=== PATIENT | female | born 1995 | race American Indian/Alaskan Native ===

== ENCOUNTER 2018-05-14 01:34 | Emergency (ER) | payer BC ==
[2018-05-14 01:58] VITALS: RESP 16; TEMP 98.5
[2018-05-14 02:42] VITALS: BP 122/74; PULSE 92; O2SAT 98
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
== END 2018-05-14 02:42 | disposition home or self-care (01) ==
LOC: H.ER 01:34
DX: S00.81XA Abrasion of other part of head, initial encounter (principal); S00.01XA Abrasion of scalp, initial encounter; Z88.0 Allergy status to penicillin; Y04.2XXA Assault by strike against or bumped into by another person, initial encounter